=== PATIENT | male | born 1950 | race Caucasian/White ===

== ENCOUNTER → 2018-05-21 | Outpatient (CLI) | payer BC, OTHER ==
[~2018-05-21] MED LIST: AMLO10TA3 PO; ASPCH81X PO; ATEN-175 PO; ATOR-22 PO; CITA20TA9 PO; LOSA1TAB38 PO; MULT-506 PO
[2018-05-21 17:11] LABS: HEMATOCRIT 45.8 % (42-52); MEAN CELL VOLUME 89.6 fL (80-100); MEAN CORPUSCULAR HEMOGLOBIN 29.4 pg (25-34); MEAN CORPUSCULAR HGB CONC 32.8 g/dl (32-36); MEAN PLATELET VOLUME 11.3 fL (7.4-10.4); PLATELET COUNT 195 K/uL (130-400); RED CELL DISTRIBUTION WIDTH SD 46.1 fL (36.4-46.3); WHITE BLOOD COUNT 7.48 K/uL (4.8-10.8)
[2018-05-21 17:27] LABS: ALBUMIN 3.8 gm/dl (3.4-5.0); ALKALINE PHOSPHATASE 52 U/L (45-117); ALT/SGPT 27 U/L (12-78); AST/SGOT 19 U/L (15-37); BLOOD UREA NITROGEN 16 mg/dl (7-18); CALCIUM 8.8 mg/dl (8.5-10.1); CARBON DIOXIDE 30 mmol/L (21-32); CHOLESTEROL 121 mg/dl (0-200); CREATININE 0.88 mg/dl (0.60-1.40); GLUCOSE 73 mg/dl (70-99); LDL CHOLESTEROL CALCULATED 57 mg/dl; POTASSIUM 4.2 mmol/L (3.5-5.1); SODIUM 136 mmol/L (136-145)
== END | disposition home or self-care (01) ==
LOC: C.LABPVFM 15:54
PROVIDERS: ATTEND Family Medicine
DX: I10 Essential (primary) hypertension (principal); I65.29 Occlusion and stenosis of unspecified carotid artery

== ENCOUNTER → 2018-05-28 | Outpatient (CLI) | payer BC ==
--- NOTE | 2018-05-28 10:25 | DIAGNOSTIC IMAGING REPORT ---
CAROTID ARTERY ULTRASOUND CLINICAL HISTORY: Occlusion and stenosis of carotid artery. COMPARISON STUDY: Carotid ultrasound June 17, 2014. TECHNIQUE: Real-time, grayscale, and color Doppler sonography of the carotid and vertebral arteries was performed. Images were viewed in the transverse and longitudinal planes. FINDINGS: There is moderate atherosclerotic plaque within the distal right common carotid artery and proximal right internal carotid artery. Velocity measurements are listed below. COMMON CAROTID PEAK SYSTOLIC VELOCITY (CM/S): RIGHT 75 LEFT 61 ICA PEAK SYSTOLIC VELOCITY (CM/S): RIGHT 93 LEFT 82 No evidence of a hemodynamically significant stenosis. Antegrade flow is seen in the vertebral arteries. The external carotid arteries are patent. Blood pressure in the right arm measured 131/74. Blood pressure in the left arm measured 135/82. IMPRESSION: No evidence of a hemodynamically significant stenosis. Electronically signed by: Cody Lacey M.D. 05/28/2018 10:24 AM Dictated Date/Time: 05/28/2018 10:21 AM
== END | disposition home or self-care (01) ==
LOC: C.ULTR 09:27
PROVIDERS: ATTEND Family Medicine
DX: I65.29 Occlusion and stenosis of unspecified carotid artery (principal)

== ENCOUNTER 2020-02-24 10:11 | Observation (INO) ==
[2020-02-24] MEDS ORDERED: SODIUM CHLORIDE 0.9% 1000ML 1,000 ML IV ONE (10:24)
--- NOTE | 2020-02-24 10:27 | Emergency Department Note ---
Impression & Plan Altered mental status, Hypertension, Global amnesia, Leukocytosis ED Provider Note NAME: CHRIST ARANA AGE: 69 SEX: M : 1950 ARRIVES VIA: Walk-In INFORMANT: Patient ED PROVIDER(S): Chato Samaniego DO CHIEF COMPLAINT: Confusion HPI: Patient is a 69-year-old male with a past medical history of hypertension that presents the ER for confusion. He notes he cannot remember anything from the past week. He does not remember waking up this morning. His long-term memory he notes is completely intact. He denies any headaches, chest pain, shortness of breath, nausea, vomiting, diarrhea, dysuria, urgency, frequency or any focal weakness or numbness in his arms or legs. He has no complaints at this time. He believes that his drove him in here to the hospital but is not 100% sure in regards to that. He notes that he has been since . He notes that he has 2 children both of which are nearly 30. History limited secondary to mentation. The notes that he alexander mushrooms this morning which she has been picking for a long time. She notes that she ate them as well last night but she got sick as she normally always does when she eats them. ROS: Review of systems limited secondary to mentation PAST MEDICAL HISTORY:See Below PAST SURGICAL HISTORY:See Below FAMILY HISTORY:See Below SOCIAL HISTORY:See Below HOME MEDICATIONS:See Below ALLERGIES:See Below VITALS:See Below PHYSICAL EXAMINATION: GENERAL: Sitting up in bed, alert, well appearing, well nourished, no distress, non-toxic EYE EXAM: normal conjunctiva. PERRL and EOM's grossly intact. OROPHARYNX: no exudate, no erythema, lips, buccal mucosa, and tongue normal and mucous membranes are moist NECK: supple, no nuchal rigidity, no adenopathy, non-tender LUNGS: Clear to auscultation. Normal chest wall mechanics HEART: no murmurs, S1 normal and S2 normal ABDOMEN: abdomen soft, non-tender, normo-active bowel sounds, no masses, no rebound or guarding. BACK: Back is symmetrical on inspection and there is no deformity, no midline tenderness, no CVA tenderness. SKIN: no rashes and no bruising UPPER EXTREMITIES: upper extremities are grossly normal. LOWER EXTREMITIES: No pitting edema. NEURO EXAM: Awake alert oriented to person, place, and year cranial nerves II- XII intact, normal speech, no weakness of arms, no weakness of legs. No drift. Finger to nose intact. Gross sensation intact. Ambulates without difficulty MEDICAL DECISION MAKING: Patient is a 69-year-old male who presents the ER for confusion. Apparently he woke up and was normal until he returned home from physical therapy. He does not remember anything that happened today or the past couple days. IV was established blood work was obtained. Neurologically completely intact with the exception of recollection of the events of today in the past week. IV was established blood work was obtained and shows a leukocytosis of 21,000. No significant anemia. INR was unremarkable. BMP with mild hyponatremia. BUN is slightly elevated and I do believe that is likely secondary to the steroids as I do believe the steroids are also causing leukocytosis. LFTs bilirubin was unremarkable. Troponin was negative. UA was negative. Tox was negative. CT as well as angios of the head and neck do show some stenosis but nothing I believe is causing his symptoms. Memory throughout his stay in the ER has been gradually coming back. He was given IV fluids. There is no signs of infection which are obvious. Question if this is secondary to the steroids versus transient global amnesia. Uncertain of the true cause of symptoms at this time but do feel is prudent for additional work-up and discussed with the hospitalist. Of note he was forging for mushrooms and ate some this morning however if this was secondary to the micrograms I would expect him to be completely confused. Triage Nursing notes reviewed. Prior medical records reviewed Vital Signs: reviewed and remarkable for hypertension Differential diagnosis: Differential diagnoses includes but is not limited to toxic, metabolic, infectious, traumatic, cardiac, neurologic, hematologic, psychiatric and inflammatory etiologies. ER treatment provided: See below Diagnostics interpreted by me: ECG: Sinus rhythm rate of 68 Normal axis No PVCs Normal QTC Cardiac Monitoring: An order was placed for continuous cardiac monitoring. The monitor shows a rate of 61 with sinus rhythm. Laboratory studies: As stated above and show below. Imaging studies: CT of the head was negative. CT angios the head and neck does show some stenosis. Please refer to full report by radiology. Consultation(s): Discussed with [facility] hospitalist Ms. Wilkerson who accepted the patient to Dr. abdullahi's service. ED COURSE: Procedures: none Critical Care: None Past Med/Surg History Social History Preferred Language: Romansh Communication Ability: Effective Complaint Investigations Officer Required: No Beliefs That Will Affect Care: None marital status: Current Living Situation: Spouse current occupational status: employed Other Information That Helps Us Care for You: No Feels Safe at Home: Yes Safety Concerns: Feels Safe At This Time Smoking Status: Never smoker Hx Alcohol Use: Yes Alcohol type: beer Alcohol Intake Frequency: Rarely Hx Substance Use: No Dental Care, Regularly: Yes Physical Activity Frequency: 3-4 Times per Week Seatbelt Use: always Sunscreen Use: Yes Allergies Allergies Allergy/AdvReac Type Severity Reaction Status Date / Time Bactrim Allergy Intermediate HIVES Verified 04/24/16 09:17 sulfamethoxazole Allergy Intermediate HIVES Verified 02/24/20 11:24 trimethoprim Allergy Intermediate HIVES Verified 02/24/20 11:24 Home Meds Home Medications Medication Instructions Recorded Confirmed aspirin 81 mg tablet 81 mg PO DAILY tab 04/02/19 02/24/20 multivitamin 1 tab PO DAILY 02/24/20 02/24/20 Previous Rx's Medication Instructions Recorded amlodipine 10 mg tablet 10 mg PO DAILY #90 tab 12/04/19 atenolol 100 mg tablet 100 mg PO DAILY #90 tab 12/04/19 atorvastatin 20 mg tablet 20 mg PO DAILY #90 tab 12/04/19 citalopram 20 mg tablet 20 mg PO DAILY #90 tab 12/04/19 losartan 100 mg tablet 100 mg PO DAILY #90 tab 12/04/19 meloxicam 15 mg tablet 15 mg PO DAILY PRN #30 tab 02/17/20 prednisone 10 mg tablets in a dose 10 mg PO UD #1 pkt 02/17/20 pack Results & Data (ED) Vital Signs Vital Signs - 24 hr 02/24/20 10:12 02/24/20 10:23 02/24/20 11:01 Temperature 36.8 C Temperature Source Oral Pulse Rate 69 71 Pulse Rate [Apical] Pulse Rate from SpO2 Sensor 71 Pulse Rhythm [Apical] Respiratory Rate 18 16 Respiratory Effort / Characteristics Non-Labored Respiratory Depth Normal Blood Pressure 171/102 H 180/104 H Blood Pressure [Right Arm] Blood Pressure Mean 125 113 Blood Pressure Mean [Right Arm] Blood Pressure Position [Right Arm] Pulse Oximetry 97 98 98 Oxygen Delivery Method Room Air Room Air Sepsis Recent Fever Within 48 Hours No Sepsis New/Unexplained Change in Mental Status No Sepsis Action Taken by Nursing No Action Required 02/24/20 11:06 02/24/20 11:13 02/24/20 11:15 Temperature Temperature Source Pulse Rate 75 69 Pulse Rate [Apical] 69 Pulse Rate from SpO2 Sensor 73 70 Pulse Rhythm [Apical] Regular Respiratory Rate 24 19 24 Respiratory Effort / Characteristics Non-Labored Respiratory Depth Normal Blood Pressure 169/93 H 160/86 H Blood Pressure [Right Arm] 180/104 H Blood Pressure Mean 108 117 Blood Pressure Mean [Right Arm] 129 Blood Pressure Position [Right Arm] Sitting Pulse Oximetry 97 98 98 Oxygen Delivery Method Room Air Sepsis Recent Fever Within 48 Hours Sepsis New/Unexplained Change in Mental Status Sepsis Action Taken by Nursing 02/24/20 11:30 02/24/20 11:45 02/24/20 12:15 Temperature Temperature Source Pulse Rate 69 66 63 Pulse Rate [Apical] Pulse Rate from SpO2 Sensor 69 66 63 Pulse Rhythm [Apical] Respiratory Rate 17 18 15 Respiratory Effort / Characteristics Respiratory Depth Blood Pressure 169/99 H 157/101 H 144/91 H Blood Pressure [Right Arm] Blood Pressure Mean 107 132 116 Blood Pressure Mean [Right Arm] Blood Pressure Position [Right Arm] Pulse Oximetry 98 98 98 Oxygen Delivery Method Sepsis Recent Fever Within 48 Hours Sepsis New/Unexplained Change in Mental Status Sepsis Action Taken by Nursing 02/24/20 12:30 02/24/20 12:45 Temperature Temperature Source Pulse Rate 66 66 Pulse Rate [Apical] Pulse Rate from SpO2 Sensor 66 Pulse Rhythm [Apical] Respiratory Rate 24 13 Respiratory Effort / Characteristics Respiratory Depth Blood Pressure 152/91 H 161/95 H Blood Pressure [Right Arm] Blood Pressure Mean 119 109 Blood Pressure Mean [Right Arm] Blood Pressure Position [Right Arm] Pulse Oximetry 95 96 Oxygen Delivery Method Sepsis Recent Fever Within 48 Hours Sepsis New/Unexplained Change in Mental Status Sepsis Action Taken by Nursing Laboratory Data Result diagrams: 02/24/20 10:25 02/24/20 10:25 Lab Results 02/24/20 02/24/20 02/24/20 Range/Units 10:25 10:25 10:25 WBC 21.23 H (4.8-10.8) K/uL RBC 5.37 (4.7-6.1) M/uL Hgb 16.6 (14.0-18.0) g/dL POC Hgb (14.0-18.0) g/dl Hct 49.3 (42-52) % POC Hct (42-52) % MCV 91.8 (80-100) fL MCH 30.9 (25-34) pg MCHC 33.7 (32-36) g/dL RDW Std Deviation 48.5 H (36.4-46.3) fL RDW Coeff of Ladi 14.3 (11.5-14.5) % Plt Count 264 (130-400) K/uL MPV 10.8 H (7.4-10.4) fL Immature Gran % (Auto) 3.6 % Neut % (Auto) 77.8 % Lymph % (Auto) 7.1 % [place] % (Auto) 10.6 % Eos % (Auto) 0.7 % Baso % (Auto) 0.2 % Immature Gran # (Auto) 0.77 H (0.00-0.02) K/uL Neut # (Auto) 16.52 H (1.4-6.5) K/uL Lymph # (Auto) 1.51 (1.2-3.4) K/uL [place] # (Auto) 2.24 H (0.11-0.59) K/uL Eos # (Auto) 0.14 (0-0.5) K/uL Baso # (Auto) 0.05 (0-0.2) K/uL PT 10.3 (9.0-12.0) Seconds INR 1.0 (0.9-1.1) APTT 23.4 (21.0-31.0) Seconds PTT Ratio 0.8 POC Sodium (135-144) mmol/L Sodium 135 L (136-145) mmol/L POC Potassium (3.3-5.0) mmol/L Potassium 3.6 (3.5-5.1) mmol/L POC Chloride (101-112) mmol/L Chloride 99 (98-107) mmol/L Carbon Dioxide 30 (21-32) mmol/L POC Total CO2 (24-31) mmol/L Anion Gap 6.0 (3-11) POC Anion Gap (16-25) mmol/L POC BUN (7-18) mg/dl BUN 20 H (7-18) mg/dl Creatinine 0.93 (0.6-1.4) mg/dl POC Creatinine (0.6-1.3) mg/dl Est Cr Clr Drug Dosing 83.5 ml/min Est GFR ( Amer) 96.1 Est GFR (Non-Af Amer) 82.9 BUN/Creatinine Ratio 21.5 H (10-20) Glucose 95 (70-99) mg/dl POC Glucose (70-99) mg/dl POC Glucose (other) (70-99) mg/dl Calcium 8.8 (8.5-10.1) mg/dl POC Ioniz Calcium Osmin (1.12-1.32) mmol/l Magnesium 2.4 (1.8-2.4) mg/dl Total Bilirubin 0.5 (0.2-1) mg/dl AST 13 L (15-37) U/L ALT 12 (12-78) U/L Alkaline Phosphatase 51 (45-117) U/L Troponin I < 0.015 (0-0.045) ng/ml Total Protein 8.2 (6.4-8.2) gm/dl Albumin 4.0 (3.4-5.0) gm/dl Globulin 4.2 H (2.5-4.0) gm/dl Albumin/Globulin Ratio 1.0 (0.9-2) Urine Color Urine Appearance (Clear) Urine pH (4.5-7.5) Ur Specific [place] (1.000-1.030) Urine Protein (Negative) Urine Glucose (UA) (Negative) Urine Ketones (Negative) Urine Blood (Negative) Urine Nitrite (Negative) Urine Bilirubin (Negative) Urine Urobilinogen (Negative) Ur Leukocyte Esterase (Negative) Urine Opiates Screen (Neg) Ur Methadone, Qual (Neg) Urine Barbiturates (Neg) Ur Phencyclidine (PCP) (Neg) U Amphetamin/Meth Scrn (Neg) MDMA (Ecstasy) Screen (Neg) U Benzodiazepines Scrn (Neg) Ur Cocaine Metabolite (Neg) U Marijuana (THC) Screen (Neg) 02/24/20 02/24/20 02/24/20 Range/Units 10:36 10:39 10:40 WBC (4.8-10.8) K/uL RBC (4.7-6.1) M/uL Hgb (14.0-18.0) g/dL POC Hgb 18.0 16.7 (14.0-18.0) g/dl Hct (42-52) % POC Hct 53 H 49 (42-52) % MCV (80-100) fL MCH (25-34) pg MCHC (32-36) g/dL RDW Std Deviation (36.4-46.3) fL RDW Coeff of Ladi (11.5-14.5) % Plt Count (130-400) K/uL MPV (7.4-10.4) fL Immature Gran % (Auto) % Neut % (Auto) % Lymph % (Auto) % [place] % (Auto) % Eos % (Auto) % Baso % (Auto) % Immature Gran # (Auto) (0.00-0.02) K/uL Neut # (Auto) (1.4-6.5) K/uL Lymph # (Auto) (1.2-3.4) K/uL [place] # (Auto) (0.11-0.59) K/uL Eos # (Auto) (0-0.5) K/uL Baso # (Auto) (0-0.2) K/uL PT (9.0-12.0) Seconds INR (0.9-1.1) APTT (21.0-31.0) Seconds PTT Ratio POC Sodium 135 135 (135-144) mmol/L Sodium (136-145) mmol/L POC Potassium 3.5 3.9 (3.3-5.0) mmol/L Potassium (3.5-5.1) mmol/L POC Chloride 96 L 97 L (101-112) mmol/L Chloride (98-107) mmol/L Carbon Dioxide (21-32) mmol/L POC Total CO2 28 27 (24-31) mmol/L Anion Gap (3-11) POC Anion Gap 15.0 L 16.0 (16-25) mmol/L POC BUN 23 H 22 H (7-18) mg/dl BUN (7-18) mg/dl Creatinine (0.6-1.4) mg/dl POC Creatinine 0.8 0.8 (0.6-1.3) mg/dl Est Cr Clr Drug Dosing ml/min Est GFR ( Amer) Est GFR (Non-Af Amer) BUN/Creatinine Ratio (10-20) Glucose (70-99) mg/dl POC Glucose 90 (70-99) mg/dl POC Glucose (other) 93 93 (70-99) mg/dl Calcium (8.5-10.1) mg/dl POC Ioniz Calcium [place] 1.19 1.09 L (1.12-1.32) mmol/l Magnesium (1.8-2.4) mg/dl Total Bilirubin (0.2-1) mg/dl AST (15-37) U/L ALT (12-78) U/L Alkaline Phosphatase (45-117) U/L Troponin I (0-0.045) ng/ml Total Protein (6.4-8.2) gm/dl Albumin (3.4-5.0) gm/dl Globulin (2.5-4.0) gm/dl Albumin/Globulin Ratio (0.9-2) Urine Color Urine Appearance (Clear) Urine pH (4.5-7.5) Ur Specific [place] (1.000-1.030) Urine Protein (Negative) Urine Glucose (UA) (Negative) Urine Ketones (Negative) Urine Blood (Negative) Urine Nitrite (Negative) Urine Bilirubin (Negative) Urine Urobilinogen (Negative) Ur Leukocyte Esterase (Negative) Urine Opiates Screen (Neg) Ur Methadone, Qual (Neg) Urine Barbiturates (Neg) Ur Phencyclidine (PCP) (Neg) U Amphetamin/Meth Scrn (Neg) MDMA (Ecstasy) Screen (Neg) U Benzodiazepines Scrn (Neg) Ur Cocaine Metabolite (Neg) U Marijuana (THC) Screen (Neg) 02/24/20 02/24/20 Range/Units 11:03 11:03 WBC (4.8-10.8) K/uL RBC (4.7-6.1) M/uL Hgb (14.0-18.0) g/dL POC Hgb (14.0-18.0) g/dl Hct (42-52) % POC Hct (42-52) % MCV (80-100) fL MCH (25-34) pg MCHC (32-36) g/dL RDW Std Deviation (36.4-46.3) fL RDW Coeff of Ladi (11.5-14.5) % Plt Count (130-400) K/uL MPV (7.4-10.4) fL Immature Gran % (Auto) % Neut % (Auto) % Lymph % (Auto) % [place] % (Auto) % Eos % (Auto) % Baso % (Auto) % Immature Gran # (Auto) (0.00-0.02) K/uL Neut # (Auto) (1.4-6.5) K/uL Lymph # (Auto) (1.2-3.4) K/uL [place] # (Auto) (0.11-0.59) K/uL Eos # (Auto) (0-0.5) K/uL Baso # (Auto) (0-0.2) K/uL PT (9.0-12.0) Seconds INR (0.9-1.1) APTT (21.0-31.0) Seconds PTT Ratio POC Sodium (135-144) mmol/L Sodium (136-145) mmol/L POC Potassium (3.3-5.0) mmol/L Potassium (3.5-5.1) mmol/L POC Chloride (101-112) mmol/L Chloride (98-107) mmol/L Carbon Dioxide (21-32) mmol/L POC Total CO2 (24-31) mmol/L Anion Gap (3-11) POC Anion Gap (16-25) mmol/L POC BUN (7-18) mg/dl BUN (7-18) mg/dl Creatinine (0.6-1.4) mg/dl POC Creatinine (0.6-1.3) mg/dl Est Cr Clr Drug Dosing ml/min Est GFR ( Amer) Est GFR (Non-Af Amer) BUN/Creatinine Ratio (10-20) Glucose (70-99) mg/dl POC Glucose (70-99) mg/dl POC Glucose (other) (70-99) mg/dl Calcium (8.5-10.1) mg/dl POC Ioniz Calcium [place] (1.12-1.32) mmol/l Magnesium (1.8-2.4) mg/dl Total Bilirubin (0.2-1) mg/dl AST (15-37) U/L ALT (12-78) U/L Alkaline Phosphatase (45-117) U/L Troponin I (0-0.045) ng/ml Total Protein (6.4-8.2) gm/dl Albumin (3.4-5.0) gm/dl Globulin (2.5-4.0) gm/dl Albumin/Globulin Ratio (0.9-2) Urine Color Yellow Urine Appearance Clear (Clear) Urine pH 7.0 (4.5-7.5) Ur Specific [place] 1.033 H (1.000-1.030) Urine Protein Negative (Negative) Urine Glucose (UA) Negative (Negative) Urine Ketones Negative (Negative) Urine Blood Negative (Negative) Urine Nitrite Negative (Negative) Urine Bilirubin Negative (Negative) Urine Urobilinogen Negative (Negative) Ur Leukocyte Esterase Negative (Negative) Urine Opiates Screen Neg (Neg) Ur Methadone, Qual Neg (Neg) Urine Barbiturates Neg (Neg) Ur Phencyclidine (PCP) Neg (Neg) U Amphetamin/Meth Scrn Neg (Neg) MDMA (Ecstasy) Screen Neg (Neg) U Benzodiazepines Scrn Neg (Neg) Ur Cocaine Metabolite Neg (Neg) U Marijuana (THC) Screen Neg (Neg) Administered Medications Aspirin (Ecotrin Ectab) 81 mg PO DAILY AYDEE Stop: 03/25/20 14:29 Last Admin: 02/24/20 15:00 Dose: 81 mg Documented by: [id number] Ioversol (Optiray 320 125ml) 119 ml IV ONCE PRN PRN Reason: Interaction Checking Stop: 02/28/20 10:43 Last Admin: 02/24/20 10:45 Dose: 119 ml Documented by: [id number] Discontinued Medications Sodium Chloride (Nss 1000ml) 1,000 mls @ 100 mls/hr IV .Q10H AYDEE Stop: 03/25/20 10:29 Last Infusion: 02/24/20 13:57 Dose: 0 mls/hr Documented by: [id number] Admin: 02/24/20 12:02 Dose: 100 mls/hr Documented by: [id number] Sodium Chloride (Nss 1000ml) 1,000 mls @ 999 mls/hr IV .Q1H1M ONE Stop: 02/24/20 11:24 Last Infusion: 02/24/20 12:01 Dose: 0 mls/hr Documented by: [id number] Admin: 02/24/20 11:00 Dose: 999 mls/hr Documented by: [id number] Discharge Plan Visit Data *Final* Discharge Date/Time: 02/24/20 13:44 Chief Complaint: Confusion Stated Complaint: CONFUSION ED Provider: Chato Samaniego Discharge Problem: Altered mental status, Hypertension, Global amnesia, Leukocytosis Patient Disposition: Admitted As Inpatient Discharge Instructions Interventions: ED Discharge Assessment Last Done: 02/24/20 13:44 Discharge Problem: Altered mental status Qualifiers: Altered mental status type: unspecified Qualified Code(s): R41.82 - Altered men oscar status, unspecified Hypertension Qualifiers: Hypertension type: unspecified Qualified Code(s): I10 - Essential (primary) hypertension Leukocytosis Qualifiers: Leukocytosis type: unspecified Qualified Code(s): D72.829 - Elevated white blood cell count, unspecified
[2020-02-24] MEDS ORDERED: SODIUM CHLORIDE 0.9% 1000ML 1,000 ML IV SCH (10:30)
--- NOTE | 2020-02-24 10:39 | XRay Report ---
SINGLE VIEW CHEST CLINICAL HISTORY: Change in mental status. FINDINGS: 2 AP, portable, upright chest radiographs are compared to study dated 04/10/2016. The examin ation is degraded by portable technique and patient rotation. The heart is mildly enlarged noting ath erosclerotic calcification of the thoracic aorta. The pulmonary vasculature is noncongested. There ar e scattered tiny calcified granulomas. No airspace consolidation or large pleural effusion is identif ied. No pneumothorax is seen. The skeletal structures are osteopenic. The bony thorax is grossly inta ct. IMPRESSION: No active disease in the chest. ACT 112: Negative or not required by law. Electronically signed by: Osman Amin M.D. 02/24/2020 10:37 AM
[2020-02-24 10:44] LABS: Hematocrit (blood only) 49.3 % (42-52); Hemoglobin 16.6 g/dL (14.0-18.0); Mean Corpuscular Hemoglobin 30.9 pg (25-34); Mean Corpuscular Hgb Conc 33.7 g/dL (32-36); Mean Corpuscular Volume 91.8 fL (80-100); Mean Platelet Volume 10.8 fL (7.4-10.4); Platelet Count 264 K/uL (130-400); RDW Coefficient of Variation 14.3 % (11.5-14.5); RDW Standard Deviation 48.5 fL (36.4-46.3); Red Blood Count 5.37 M/uL (4.7-6.1); White Blood Count 21.23 K/uL (4.8-10.8)
[2020-02-24] MEDS ORDERED: OPTIRAY 320 125ml IV PRN (10:44)
[2020-02-24 10:48] LABS: iSTAT Creatinine 0.8 mg/dl (0.6-1.3); iSTAT Ionized Calcium 1.19 mmol/l (1.12-1.32); iSTAT Potassium 3.5 mmol/L (3.3-5.0)
[2020-02-24 10:49] LABS: Partial Thromboplastin Ratio 0.8; Partial Thromboplastin Time 23.4 Seconds (21.0-31.0); Prothrombin Time 10.3 Seconds (9.0-12.0)
[2020-02-24 10:53] LABS: iSTAT Creatinine 0.8 mg/dl (0.6-1.3); iSTAT Hemoglobin 16.7 g/dl (14.0-18.0); iSTAT Ionized Calcium 1.09 mmol/l (1.12-1.32); iSTAT Potassium 3.9 mmol/L (3.3-5.0)
[2020-02-24 11:08] LABS: Alanine Aminotransferase 12 U/L (12-78); Aspartate Aminotransferase 13 U/L (15-37); BUN Creatinine Ratio 21.5 (10-20); Blood Urea Nitrogen 20 mg/dl (7-18); Calcium 8.8 mg/dl (8.5-10.1); Carbon Dioxide 30 mmol/L (21-32); Chloride 99 mmol/L (98-107); Creatinine Clr Calc Pharmacy 83.5 ml/min; Est GFR (African American) 96.1; Est GFR (Non-African American) 82.9; Glucose 95 mg/dl (70-99); Magnesium 2.4 mg/dl (1.8-2.4); Potassium 3.6 mmol/L (3.5-5.1); Sodium 135 mmol/L (136-145)
[2020-02-24 11:13] LABS: Alkaline Phosphatase 51 U/L (45-117); Bilirubin,Total 0.5 mg/dl (0.2-1); Globulin 4.2 gm/dl (2.5-4.0); Total Protein 8.2 gm/dl (6.4-8.2); Troponin I < 0.015 ng/ml (0-0.045)
--- NOTE | 2020-02-24 11:14 | CT Scan Report ---
CT angio head w con, CT angio neck with con, CT head/brain wo con CLINICAL HISTORY: 69 years-old Male with Stroke evaluation . Acute strokelike symptoms COMPARISON STUDY: None TECHNIQUE: Unenhanced axial CT scan of the brain is performed. Subsequently, following the IV adminis tration of 119 cc of Optiray 320, CT angiogram of the head and neck was performed from the skull base to the vertex. Images are reviewed in the axial, sagittal, and coronal planes. 3-D MIPS images are c reated and assessed. IV contrast was administered without complication. All measurements were obtaine d according to NASCET criteria. A dose lowering technique was utilized adhering to the principles of ALARA. CT DOSE: 1174.85 mGy.cm FINDINGS: CT BRAIN: There is no acute intracranial hemorrhage, midline shift, hydrocephalus, intracranial mass, territori al ischemia or abnormal extra-axial collections. No abnormal intra-axial or extra-axial enhancement. Age-related involutional changes. Megacisterna magna. Mild patchy white matter hypodensities are sugg estive of chronic microvascular ischemic changes. Mastoid air cells and middle ear cavities are clear . No calvarial fracture. Paranasal sinuses are clear. CT ANGIOGRAM OF THE HEAD AND NECK: The imaged common carotid arteries are patent. Moderate left and severe right mixed plaque formation of the carotid bulbs and proximal internal carotid arteries. There is less than 50% stenosis of the p roximal left ICA. Tortuosity of the proximal mid cervical segment left ICA. There is 50% luminal narr owing involving the proximal right ICA, image 185 series 6. Calcified plaque involves the bilateral c avernous and supraclinoid segments without high-grade stenosis. There is mild multifocal luminal narr owing of the right middle and anterior cerebral arteries. The bilateral middle and anterior cerebral arteries are patent. Anterior communicating artery appears normal. Codominant vertebral arteries. Calcified calcified plaque is noted at the origin of the bilateral [place] tebral arteries which causes approximately 60% luminal narrowing on the left and less than 50% stenos is on the right. Vertebral arteries are otherwise patent and unremarkable. The basilar artery is jordan nt. origin of the right posterior cerebral artery. Posterior cerebral arteries are patent. No a neurysm, dissection or proximal branch occlusion. Dural sinuses appear patent. There is no abnormal i ntracranial enhancement identified. Lung apices are clear without pneumothorax. The soft tissues of the neck are unremarkable. Streak art ifact from dental amalgam hardware. Calcifications of the left palatine tonsil. Multilevel disc space narrowing with spondylitic spurring and facet arthrosis of the cervical spine. This results in multi level foraminal narrowing. Straightening of the normal cervical lordosis. IMPRESSION: 1. No acute intracranial abnormality. 2. No aneurysm, dissection, high-grade stenosis or proximal branch occlusion. 3. Mild and moderate arterial luminal narrowing as detailed above secondary to atherosclerotic vascul ar changes. ACT 112: Negative or not required by law. The above report was generated using voice recognition software. It may contain grammatical, syntax o r spelling errors. Electronically signed by: Godfrey Carter M.D. 02/24/2020 11:12 AM
[2020-02-24 11:19] LABS: Basophils # (auto) 0.05 K/uL (0-0.2); Basophils % (auto) 0.2 %; Eosinophils # (auto) 0.14 K/uL (0-0.5); Eosinophils % (auto) 0.7 %; Immature Granulocytes # (auto) 0.77 K/uL (0.00-0.02); Immature Granulocytes % (auto) 3.6 %; Lymphocytes # (auto) 1.51 K/uL (1.2-3.4); Lymphocytes % (auto) 7.1 %; Monocytes # (auto) 2.24 K/uL (0.11-0.59); Monocytes % (auto) 10.6 %; Neutrophils # (auto) 16.52 K/uL (1.4-6.5); Neutrophils % (auto) 77.8 %
[2020-02-24 11:27] LABS: Appearance Urine Clear (Clear); Bilirubin Urine Negative (Negative); Blood Urine Negative (Negative); Color Urine Yellow; Glucose Urine UA Negative (Negative); Ketones Urine Negative (Negative); Leukocyte Esterase Urine Negative (Negative); Nitrite Urine Negative (Negative); Protein Urine Negative (Negative); Specific Gravity Urine 1.033 (1.000-1.030); Urobilinogen Urine Negative (Negative)
[2020-02-24 11:29] LABS: Amphetamines+Metham, Urine Neg (Neg); Barbiturates, Urine Neg (Neg); Benzodiazepine, Urine Neg (Neg); Cocaine, Urine Neg (Neg); MDMA (Ecstacy), Urine Neg (Neg); Methadone, Urine Neg (Neg); Opiate, Urine Neg (Neg); Phencyclidine, Urine Neg (Neg)
--- NOTE | 2020-02-24 13:02 | History & Physical Report ---
Date of Service February 24, 2020 Assessment & Plan (1) Global amnesia: Admit observation med surg Patient had head CT and CTA of the neck which showed less than 50% stenosis of the proximal left ICA. Tortuosity of the proximal mid cervical segment left ICA. There is 50% luminal narrowing involving the proximal right ICA. No evidence of bleed or CVA Urine tox negative Patient is on ASA and atorvastatin at home. Will get a lipid panel in the morning and increase atorvastatin to 40 mg MRI brain (2) Leukocytosis: Likely secondary to prednisone administration. Patient is on day 8 of 12 Medrol pack No s/s of illness - afebrile, no cough, chest xray clear, urine without apparent infection (3) Lumbar degenerative disc disease: Will taper steroids down further, patient was on 20 mg from today until F riday and then finished. Will place on 10 mg. Continue meloxicam (4) Carotid stenosis: As above - increase statin, check lipids, continue ASA (5) Hypertension: Continue home atenolol, losartan History of Present Illness Mr. Meza presents today with loss of memory and confusion. His is with him and provides much of the history. He got up this morning, appeared his usual self, made a large breakfast with self foraged morels (he has gathered morels for many years). His did note he seemed a bit more agitated than usual over a trivial issue with an iPad. He then drove himself to PT. When he returned his noticed his forgetfulness and confusion. She spoke with the PT who said he appeared normal during his therapy except that he couldn't remember what day it was. The patient says he remembers bits of yesterday but cannot remember much of anything before the present moment. He repeats himself frequently as we talk. Per himself and his he has not been ill or experienced any physical trauma. He has been on a Medrol pack for about 8/12 days now but has taking steroids before without issue. Denies any aches, chills, fevers, cough, sob, chest pain, palpitations, lightheadedness, n/v/d, dysuria, hesitancy, rashes or musculoskeletal pain or weakness. He has had no slurred speech. Pmhx: hld, lumbar degenerative disk disease, htn Social: lives with , works as a financial analyst accountant, smokes occasional cigar, occasional beer Family: Father with CVA, mother had cirrhosis following hepatitis infection as a child, brother had cardiac bypass Primary Care Provider: Angeles Ace MD Allergies Allergy/AdvReac Type Severity Reaction Status Date / Time Bactrim Allergy Intermediate HIVES Verified 04/24/16 09:17 sulfamethoxazole Allergy Intermediate HIVES Verified 02/24/20 11:24 trimethoprim Allergy Intermediate HIVES Verified 02/24/20 11:24 Home Medications Home Medications Medication Instructions Recorded Confirmed Type aspirin 81 mg tablet 81 mg PO DAILY tab 04/02/19 02/24/20 History amlodipine 10 mg tablet 10 mg PO DAILY #90 tab 12/04/19 02/24/20 Rx atenolol 100 mg tablet 100 mg PO DAILY #90 tab 12/04/19 02/24/20 Rx atorvastatin 20 mg tablet 20 mg PO DAILY #90 tab 12/04/19 02/24/20 Rx citalopram 20 mg tablet 20 mg PO DAILY #90 tab 12/04/19 02/24/20 Rx losartan 100 mg tablet 100 mg PO DAILY #90 tab 12/04/19 02/24/20 Rx meloxicam 15 mg tablet 15 mg PO DAILY PRN #30 tab 02/17/20 02/24/20 Rx prednisone 10 mg tablets in a dose 10 mg PO UD #1 pkt 02/17/20 02/24/20 Rx pack multivitamin 1 tab PO DAILY 02/24/20 02/24/20 History Past Med/Surg History Social History Preferred Language: Azeri Communication Ability: Effective Chief Investigator Required: No Beliefs That Will Affect Care: None marital status: Current Living Situation: Spouse current occupational status: employed Other Information That Helps Us Care for You: No Feels Safe at Home: Yes Safety Concerns: Feels Safe At This Time Smoking Status: Never smoker Hx Alcohol Use: Yes Alcohol type: beer Alcohol Intake Frequency: Rarely Hx Substance Use: No Dental Care, Regularly: Yes Physical Activity Frequency: 3-4 Times per Week Seatbelt Use: always Sunscreen Use: Yes Review of Systems Review of Systems: All systems reviewed & are unremarkable except as noted in HPI & below Physical Exam Physical Exam: General: no distress Eyes: normal inspection, PERLL Respiratory: chest non tender, clear to auscultation, normal breath sounds, no respiratory distress, no accessory muscle use Cardiac: regular rate and rhythm, no rub or gallop, no murmur, no edema, no jvd GI/: active bowel sounds, no abd pain or tenderness, soft, non distended Extremities: normal range of motion, normal strength, non tender Neuro/Psych: alert and oriented x 3, normal mood and affect, CN II -XII intact, no drift or ataxia, repeats self frequently Skin: normal color, dry Results & Data Results & Data ([facility]) Vital Signs (Past 12 Hours) Vital Signs Temp Pulse Pulse Resp BP BP Pulse Ox 02/24/20 11:45 66 18 157/101 H 98 02/24/20 11:30 69 17 169/99 H 98 02/24/20 11:15 69 24 160/86 H 98 02/24/20 11:13 75 19 169/93 H 98 02/24/20 11:06 69 24 180/104 H 97 02/24/20 11:01 71 16 180/104 H 98 02/24/20 10:23 98 02/24/20 10:12 36.8 C 69 18 171/102 H 97 Code Status & VTE Plan Code Status no intubation VTE Prophylaxis Plan VTE Prophylaxis will be ordered: Yes Supervising Physician Co-Signing Physician Notes I personally examined the patient and verified all armijo points of history and exam, discussed case, and agree with decision making with Melanie COPPOLA. feeling better now but absolutely no recollection of this AM vitals noted nad breathing unlabored no accessory muscles good effort skin no rashes no pallor or icterus no focal neuro deficits TGA - now better. eval down cerebrovascular ischemia category although he looks good enough this is likely idiopathic. ?alexander related although would think that would be more hallucination or anti-cholinergic if he ate the wrong mushrooms, plus he is way more experienced than i at alexander hunting and noted "they're idiot proof" -- anticipate home tomorrow. secondary risk reduction should any be unearthed. otherwise as above PG Care Time/CCT Total # of Minutes Spent Total Time Spent with Patient: Total time spent is greater than 50% in coordination of care (as documented) at patient's floor/unit and/or counseling patient: Coding Level of Care Code 60914 OBS Care - Level 3 Diagnoses Global amnesia R41.3 Leukocytosis D72.829 Leukocytosis type: unspecified Lumbar degenerative disc disease M51.36 Carotid stenosis I65.29 Hypertension I10 Hypertension type: unspecified (1) Leukocytosis Leukocytosis type: unspecified Qualified Code(s): D72.829 - Elevated white blood cell count, unspecified (2) Hypertension Hypertension type: unspecified Qualified Code(s): I10 - Essential (primary) hypertension
[2020-02-24] MEDS ORDERED: MELOXICAM 7.5 MG TAB PO PRN (13:55)
[2020-02-24] MEDS ORDERED: ACETAMINOPHEN 325 MG TAB PO PRN (13:55)
[2020-02-24] MEDS: ASPIRIN 81 MG ECTAB PO SCH (15:00)
[2020-02-24] MEDS ORDERED: GADOBUTROL 65ML VIAL IV PRN (16:47)
--- NOTE | 2020-02-24 17:03 | Magnetic Resonance Report ---
MRI OF THE BRAIN WITHOUT AND WITH IV CONTRAST CLINICAL HISTORY: global amnesia COMPARISON STUDY: Noncontrast head CT dated 02/24/2020 TECHNIQUE: MRI of the brain was performed from the vertex to the skull base utilizing various T1 and T2 weighted sequences. Following the IV administration of 9.5 mL of Gadavist contrast, additional enh anced images were obtained. FINDINGS: Sagittal T1, axial diffusion, proton density and T2 weighted axial, coronal FLAIR, and pre and post a xial T1-weighted images were acquired. These were supplemented with post gadolinium coronal T1 weight ed images. No intra or extra-axial mass lesions are visualized. Axial diffusion-weighted images reveal no evidence of acute or subacute infarction. There is no evidence of ventricular dilatation. Proton density T2-weighted and FLAIR images reveal scattered foci of increased T2 signal within the w mika matter, likely on a small vessel basis. There are no abnormal flow voids. There is no evidence of pathologic enhancement. IMPRESSION: 1. No acute intracranial findings 2. No evidence of intracranial mass 3. No evidence of acute or subacute infarction. ACT 112: Negative or not required by law. Electronically signed by: Hari Patel M.D. 02/24/2020 5:01 PM
[2020-02-25 05:22] LABS: Chol HDL Ratio 3; Cholesterol 133 mg/dl (0-200); HDL Cholesterol 54 mg/dl; LDL Cholesterol Calculated 60 mg/dl; Triglycerides 96 mg/dl (0-150); VLDL Cholesterol 19 mg/dl
[2020-02-25 05:35] LABS: Basophils # (auto) 0.05 K/uL (0-0.2); Basophils % (auto) 0.5 %; Eosinophils # (auto) 0.26 K/uL (0-0.5); Eosinophils % (auto) 2.4 %; Hematocrit (blood only) 46.7 % (42-52); Hemoglobin 15.5 g/dL (14.0-18.0); Immature Granulocytes # (auto) 0.44 K/uL (0.00-0.02); Lymphocytes # (auto) 2.58 K/uL (1.2-3.4); Lymphocytes % (auto) 23.4 %; Mean Corpuscular Hemoglobin 30.5 pg (25-34); Mean Corpuscular Hgb Conc 33.2 g/dL (32-36); Mean Corpuscular Volume 91.7 fL (80-100); Mean Platelet Volume 10.7 fL (7.4-10.4); Monocytes # (auto) 1.22 K/uL (0.11-0.59); Monocytes % (auto) 11.1 %; Neutrophils # (auto) 6.46 K/uL (1.4-6.5); Neutrophils % (auto) 58.6 %; Platelet Count 199 K/uL (130-400); RDW Coefficient of Variation 14.4 % (11.5-14.5); RDW Standard Deviation 48.8 fL (36.4-46.3); Red Blood Count 5.09 M/uL (4.7-6.1); White Blood Count 11.01 K/uL (4.8-10.8)
--- NOTE | 2020-02-25 05:36 | Electrocardiogram Report ---
Test Reason : Blood Pressure : / mmHG Vent. Rate : 068 BPM Atrial Rate : 068 BPM P-R Int : 200 ms QRS Dur : 086 ms QT Int : 406 ms P-R-T Axes : 070 055 066 degrees QTc Int : 431 ms Normal sinus rhythm Normal ECG When compared with ECG of 10-APR-2016 14:28, [place] interval has decreased Confirmed by Abhijit Thrasher ([id number]) on 02/25/2020 5:36:09 AM Referred By: REFERRED SELF Confirmed By:Abhijit Thrasher
[2020-02-25 06:18] LABS: Estimated Average Glucose 123 mg/dl; Hemoglobin A1C 5.9 % (4.5-5.6)
[2020-02-25] MEDS ORDERED: ATENOLOL 50 MG TABLET PO SCH (09:00)
[2020-02-25] MEDS ORDERED: AMLODIPINE BESYLATE 5 MG TAB PO SCH (09:00)
[2020-02-25] MEDS ORDERED: LOSARTAN POTASSIUM 50 MG TAB PO SCH (09:00)
[2020-02-25] MEDS ORDERED: MULTIVITAMIN TAB PO SCH (09:00)
[2020-02-25] MEDS ORDERED: CITALOPRAM 20 MG TAB PO SCH (09:00)
[2020-02-25] MEDS ORDERED: ATORVASTATIN 40 MG TAB PO SCH (09:00)
[2020-02-25] MEDS ORDERED: predniSONE 10 MG TABLET PO SCH (09:00)
[2020-02-25] MEDS ORDERED: predniSONE 10 MG TABLET PO ONE (10:01)
[2020-02-25] MEDS: ASPIRIN 81 MG ECTAB PO SCH (10:07)
--- NOTE | 2020-02-25 10:23 | Discharge Summary ---
Date of Service February 25, 2020 Admission HPI Per Admitting Provider Mr. Meza presents today with loss of memory and confusion. His is with him and provides much of the history. He got up this morning, appeared his usual self, made a large breakfast with self foraged morels (he has gathered morels for many years). His did note he seemed a bit more agitated than usual over a trivial issue with an iPad. He then drove himself to PT. When he returned his noticed his forgetfulness and confusion. She spoke with the PT who said he appeared normal during his therapy except that he couldn't remember what day it was. The patient says he remembers bits of yesterday but cannot remember much of anything before the present moment. He repeats himself frequently as we talk. Per himself and his he has not been ill or experienced any physical trauma. He has been on a Medrol pack for about 8/12 days now but has taking steroids before without issue. Denies any aches, chills, fevers, cough, sob, chest pain, palpitations, lightheadedness, n/v/d, dysuria, hesitancy, rashes or musculoskeletal pain or weakness. He has had no slurred speech. Pmhx: hld, lumbar degenerative disk disease, htn Social: lives with , works as a director financial services, smokes occasional cigar, occasional beer Family: Father with CVA, mother had cirrhosis following hepatitis infection as a child, brother had cardiac bypass Principal Diagnosis Transient Global Amnesia Discharge Exam Constitutional WD/WN, vitals as above Respiratory normal respiratory effort, lungs clear to auscultation Cardiovascular RRR, no murmur, no edema Gastrointestinal (Abdomen) Inspection/Auscultation: abdomen normal to inspection and normal bowel sounds; abdomen not distended Percussion/Palpation: abdomen nontender Musculoskeletal no cyanosis or clubbing, extremities motor strength 5/5 Skin no rashes, warm and dry Neurologic CN's II-XI intact bilaterally, moves all extremities and awake Psychiatric A+Ox3, euthymic affect Discharge Data Allergies Allergy/AdvReac Type Severity Reaction Status Date / Time Bactrim Allergy Intermediate HIVES Verified 04/24/16 09:17 sulfamethoxazole Allergy Intermediate HIVES Verified 02/24/20 11:24 trimethoprim Allergy Intermediate HIVES Verified 02/24/20 11:24 Consultations 02/24/20 12:10 ED Decision to Admit Stat Ordered Studies 02/24/20 10:24 CT angio head w con Stat CT angio neck with con Stat CT head/brain wo con Stat 02/24/20 13:55 MR brain wo/w con Urgent Hospital Course (1) Global amnesia: Unclear inciting event Patient had head CT and CTA of the neck which showed less than 50% stenosis of the proximal left ICA. Tortuosity of the proximal mid cervical segment left ICA. There is 50% luminal narrowing involving the proximal right ICA. No evidence of bleed or CVA Urine tox negative Patient is on ASA and atorvastatin at home. MRI brain without acute or abnormal findings Patient had some concerns that his prednisone could have played a role though he has tolerated prednisone in the past. He was on 40mg in his taper, will give 20 mg today, tomorrow, then 2 days of 10 mg and then complete the taper. (2) Leukocytosis: Improving - Likely secondary to prednisone administration. Patient was on day 8 of 12 Medrol pack No s/s of illness - afebrile, no cough, chest xray clear, urine without apparent infection (3) Lumbar degenerative disc disease: Will taper steroids down further, patient was on 20 mg from today until Sunday and then finished. Will place on 10 mg. Continue meloxicam (4) Carotid stenosis: As above - continue ASA and statin Lipids wnl (5) Hypertension: Continue home atenolol, losartan (6) Elevated hemoglobin A1c: 5.9% - recommend recheck in a few months with pcp. Patient has been on steroids for over a week which could have possibly skewed results. We did discuss healthy diet and and exercise. Total Time Total Time Spent Total Time Spent (In Minutes): greater than 30 minutes Discharge Plan Discharge Items Patient Disposition: Home - Self-Care Reason For Visit: CONFUSION Discharge Diagnosis: Transient global amnesia Activity: Resume your previous activity Non-emergency contact: Primary Care Provider Call non-emergency contact if: you have any medication questions Follow-up/Referrals: Angeles Ace MD [Primary Care Provider] - Diet: Heart Healthy Addtl Attending Provider Instructions: (1)Transient Global amnesia: Unfortunately, there is often no obvious trigger for a TGA event to occur and many factors have been discussed as possible inciting events in the literature. The good news is that imaging of your brain did not show any stroke, tumors or bleeds: Your head and neck CT and CT angiogram showed less than 50% stenosis of the proximal left internal carotid artery and 50% luminal narrowing involving the proximal right internal carotid artery. No evidence of bleed or stroke. You are on appropriate medications for the stenosis in your carotid arteries with your statin and aspirin. Continue to have your primary care provider monitor. Your MRI of your brain did not show any acute events such as stroke, bleed or tumors. (2) Leukocytosis (elevated white blood cell count) : Likely secondary to steroid administration. You were given 20 mg of prednisone today, please take 20 mg again tomorrow and then 10 mg for the next two days and then stop. (3) Lumbar degenerative disc disease: Taper steroids as above Continue meloxicam (4) Carotid stenosis: As discussed with your imaging above. Please continue your statin and aspirin. Your lipid panel was within normal limits (5) Hypertension: Continue home atenolol, losartan (6) Elevated A1c Your A1c, which is a 3 month average of your blood sugar, was 5.9% which is above normal and considered "prediabetic" range. However, things can affect your A1c such as steroids which you have been on which can make this less accurate. I recommend you discuss with your primary care provider and recheck in a few months. As is good advice for everyone, avoid refined carbohydrates such as white breads, white rice, white potatoes, sweets and desserts. Focus your diet on whole grains, lean proteins such as poultry, fish, beans and tofu and eat plenty of vegetables and fruits. Try to increase your exercise to at least a half an hour a day, whatever you enjoy doing be it swimming, bicycling, walking, yoga etc. Pending Studies at Discharge: No Stand-Alone Forms: [facility] [employer], Smoking Cessation Medications and DC Order Prescriptions: Continued prednisone 10 mg tablets,dose pack 10 mg PO UD Qty: 1 RF: 0 meloxicam 15 mg tablet 15 mg PO DAILY PRN (Reason: pain) Qty: 30 RF: 2 aspirin 81 mg tablet 81 mg PO DAILY RF: 0 amlodipine 10 mg tablet 10 mg PO DAILY Qty: 90 RF: 1 atenolol 100 mg tablet 100 mg PO DAILY Qty: 90 RF: 1 citalopram 20 mg tablet 20 mg PO DAILY Qty: 90 RF: 1 losartan 100 mg tablet 100 mg PO DAILY Qty: 90 RF: 1 atorvastatin 20 mg tablet 20 mg PO DAILY Qty: 90 RF: 1 multivitamin Tablet 1 tab PO DAILY RF: 0 Discharge Orders: Discharge Order (Routine); Ordered 02/25/20 Ordered By: Etsefany Lopez Admission Data Admit Date/Time: 02/24/20 12:53 Attending Provider: Alberto Padron Admit Provider: Chato Mcqueen Primary Care Provider: Angeles Ace Other Providers: Alberto Padron Other Interventions: Discharge Summary Assessment (RN) Last Done: 02/25/20 11:21 DC Date/Time DO NOT enter until pt leaves facility: 02/25/20 11:45 Supervising Physician Co-Signing Physician Notes I supervised Estefany Lopez NP on this patient's care. I examined the patient today independently of her. I discussed the plan of care with her with the plan being as written in her note except for any following changes/exceptions: None. Now back to baseline. Still does not remember the part of his day yesterday, but no trouble making new memories and remember coming to the hospital and overnight/morning events. Appears to have had transient global amnesia, and we discussed how this is a difficult diagnosis without a causal event. Also discussed how difficult it is to predict if it will happen again. If it does, he can/should see a neurologist for more thorough work-up. - Will follow up with PCP. Coding Level of Care Code D/C Day Management >30 mins Diagnoses Global amnesia R41.3 Leukocytosis D72.829 Leukocytosis type: unspecified Lumbar degenerative disc disease M51.36 Carotid stenosis I65.29 Hypertension I10 Hypertension type: unspecified Elevated hemoglobin A1c R73.09
== END 2020-02-25 11:45 | disposition home or self-care (01) ==
LOC: ED 10:11 → 2W 10:11 → SUATTDRO 12:53 → 2W 13:44